=== PATIENT | male | born 2005 | race Caucasian/White ===

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

== ENCOUNTER 2024-01-09 09:52 | Outpatient (CLI) | payer BC, SELFPAY ==
--- OUTSIDE RECORDS SUMMARY | 2024-01-09 09:55 | XMS_ITS | Clinical Summary ---
Author Name Unknown Organization [facility] Address [place], [place] [address] Care Team Providers Care Hand Assembler For [employer] Name Role Phone Gilbert Jane MD Primary Care Provider Allergies Active Allergy Reactions Criticality Noted Date Comments Nickel Rash 11/28/2011 Rash on Belly. (Buttons on pants) Medications Medication Sig Dispensed Refills Start Date End Date Status multivitamin (MVI) tablet Take 1 tablet by mouth once daily. 0 08/06/2011 Active Active Problems Problem Noted Date Diagnosed Date ADD (attention deficit disorder with hyperactivi ty) 12/01/2011 Overview: a system change updated this record. This will not affect patient care or billing. This comment can be deleted. Immunizations Name Administration Dates Next Due AMB Influenza, IIV3 (Age >=3 years)(Flu Clinic Only) 07/20/2008 DTP 04/27/2010 DTaP 04/22/2006 [id number] (Pediarix) 06/27/2005,04/23/2005,0 01/24/2005 HIB PRP-OMP (PedvaxHIB) 04/22/2006,04/23/2005, Hepatitis A, Unspecified 07/07/2006 Inactivated Polio Vaccine 04/27/2010 Influenza,LAIV4 Live Intrana amanda (Flumist) 08/06/2011 MMR 04/27/2010,12/24/2005 Pneumococcal conj 7-Valent ( Prevnar 7) 04/22/2006,06/27/2005,04/23/2005,2004 Varicella Vaccine 04/27/2010,12/24/2005 Family History Medical History Relation Name Comments Good Health Father Good Health Mother Relation Name Status Comments Father Alive Maternal Grandfather Alive Maternal Grandmother Alive Mother Alive Paternal Grandfather Alive Paternal Grandmother Alive Social History Tobacco Use Types Packs/Day Years Used Date Smoking Tobacco: Passive [place]o [place] Exposure - Never Smoker Smokeless Tobacco: Never Alcohol Use Standard Drinks/Week Comments No 0 (1 standard drink = 0.6 oz pur e alcohol) Sex and Gender Information Value Date Recorded Sex Assigned at Male 05/12/2023 1:37 PM CDT Gender Identity Not on file Sexual Orientation Not on file Obstetrics History Last Filed Vital Signs Vital Sign Reading Time Taken Comments Blood Pressure 110/62 03/17/2015 2:08 PM CDT Pulse 112 03/17/2015 2:08 PM CDT Temperature 37.6 ??C (99.6 ??F) 03/17/2015 2:08 PM CD T Respiratory Rate - - Oxygen Saturation - - Inhaled Oxygen Concentration - - Weight 51.3 kg (113 lb) 03/17/2015 2:08 PM CDT Height 135 cm (4' 5.15) 07/08/2013 11:09 AM CDT Body Mass Index - - Plan of Treatment Health Maintenance Due Date Last Done Comments Well Child Check for age 3-20 11/12/2007 Tdap 12/11/2015 Depression screening for age 12+ 2016 HIV for age 15-65 12/11/2019 HPV series for age 9-26 (1 - Male 3-dose series) 12/11/2019 BMI (ht and wt on same day) for age 18+ 2022 Hepatitis C screening for age 18-79 2022 COVID-19 vaccine series ( - 2022-24 season) 2023 Influenza for age 9-49 05/23/2024 08/06/2011, 2007 Pneumococcal series for age 6-64 Aged Out 04/22/2006, 06/27/2005, 04/23/2005, Additional history exists No longer eligible based on patient's age to complete this topic Meningococcal series for age 11-21 Aged Out No longer eligible based on patient's age to complete this topic Care Teams Hand Assembler [employer] Relationship Specialty Start Date End Date Gilbert Jane MD [address] [address] PCP - General Family Practice 07/08/13
== END 2024-01-09 09:53 | disposition home or self-care (01) ==
PROVIDERS: PCP Pediatrics; Visit Provider Family Medicine
DX: K52.9 Noninfective gastroenteritis and colitis, unspecified (principal)
CPT/HCPCS: 80053; 83516; 86140